=== PATIENT | female | born 1995 | race Native Hawaiian/Other Pacific Islander ===

== ENCOUNTER 2018-08-29 14:31 | Emergency (ER) | payer BC ==
[2018-08-29 14:51] VITALS: BP 130/52
[2018-08-29] MEDS ORDERED: IBUPROFEN ONE (15:50)
[2018-08-29] MEDS ORDERED: IBUPROFEN PO ONE (16:01)
== END 2018-08-29 19:20 | disposition left against medical advice (07) ==
LOC: ED 14:31
DX: M54.2 Cervicalgia (principal); Z53.21 Procedure and treatment not carried out due to patient leaving prior to being seen by health care provider